=== PATIENT | female | born 1965 | race Caucasian/White ===

== ENCOUNTER 2020-08-03 06:37 | Day surgery (SDC) | payer OTHER ==
[2020-08-03] MEDS ORDERED: Sodium Chloride 0.9(Preservative Free) 10 ML IJ ONE (06:38)
[2020-08-03] MEDS ORDERED: Depo-Medrol 40 MG/ML IM ONE (06:38)
[2020-08-03] MEDS ORDERED: DIPRIVAN 200 MG/20 ML IV ONE (08:28)
--- NOTE | 2020-08-03 10:40 | XRAY ---
Indication: Right L3-L5 transforaminal GAIL. Intraoperative fluoroscopy provided for 44 seconds. 5 digital spot images submitted for interpretation demonstrates posterior needle tips projecting over the expected right L4 and L5 nerve roots. Small amount of contrast injected for needle tip placement. Correlate with intraoperative findings/report.
--- NOTE | 2020-08-03 11:00 | XRAY ---
44 seconds fluoroscopy time in surgery for right L3-L5 transforaminal GAIL.
[2020-08-03] MEDS ORDERED: Lactated Ringers 1,000 ML IV ONE (15:25)
== END 2020-08-03 08:55 | disposition home or self-care (01) ==
LOC: SDC-PAIN 06:37
PROVIDERS: ATTEND Psychiatry & Neurology Pain Medicine
DX: M47.816 Spondylosis without myelopathy or radiculopathy, lumbar region (principal); I10 Essential (primary) hypertension; I12.9 Hypertensive chronic kidney disease with stage 1 through stage 4 chronic kidney disease, or unspecified chronic kidney disease; E11.22 Type 2 diabetes mellitus with diabetic chronic kidney disease; N18.30 Chronic kidney disease, stage 3 unspecified; E06.3 Autoimmune thyroiditis; Z79.899 Other long term (current) drug therapy
CPT/HCPCS: 64483; 64484; 72100; 77003; 82947; J1030; J2704; Q9966

== ENCOUNTER 2020-09-21 07:29 | Day surgery (SDC) | payer OTHER ==
[2020-09-21] MEDS ORDERED: BUPIVACAINE 0.5% VIAL IJ ONE (07:30)
[2020-09-21] MEDS ORDERED: Depo-Medrol 40 MG/ML IM ONE (07:30)
[2020-09-21] MEDS ORDERED: DIPRIVAN 200 MG/20 ML IV ONE (09:12)
[2020-09-21] MEDS ORDERED: Lactated Ringers 1,000 ML IV ONE (11:30)
--- NOTE | 2020-09-21 11:51 | XRAY ---
Indication: Bilateral SI joint injection. Intraoperative fluoroscopy provided for 25 seconds. 4 digital spot image submitted for interpretation demonstrates posterior needle tip projecting over the inferior left and right SI joints. Correlate with intraoperative findings/report.
--- NOTE | 2020-09-21 12:03 | XRAY ---
25 seconds of fluoroscopy was used in surgery for a bilateral SI joint injection.
== END 2020-09-21 09:43 | disposition home or self-care (01) ==
LOC: SDC-PAIN 07:29
PROVIDERS: ATTEND Psychiatry & Neurology Pain Medicine
DX: M46.1 Sacroiliitis, not elsewhere classified (principal); E06.3 Autoimmune thyroiditis; E11.22 Type 2 diabetes mellitus with diabetic chronic kidney disease; I12.9 Hypertensive chronic kidney disease with stage 1 through stage 4 chronic kidney disease, or unspecified chronic kidney disease; N18.30 Chronic kidney disease, stage 3 unspecified; M41.9 Scoliosis, unspecified; Z79.899 Other long term (current) drug therapy
CPT/HCPCS: 27096; 72202; 77002; 82947; J1030; J2704; G0260

== ENCOUNTER 2022-03-30 14:24 | Observation (INO) | payer MEDICARE, OTHER ==
--- NOTE | 2022-03-30 15:14 | XRAY ---
Indication: Atrial fibrillation. Comparison: None Portable chest inflated and clear with incidental small right apical calcified granuloma. Heart not enlarged for AP portable technique. Bony thorax intact with mild osteopenia, degenerative changes, and dextroscoliosis. Impression: Nonacute chest with chronic features.
[2022-03-30 15:18] LABS: INR 1.02 (0.8-3.0); PROTIME 10.8 SECONDS (9.4-12.5); PTT 26.6 SECONDS (25.1-36.5)
[2022-03-30 15:21] LABS: Basophil (Absolute #) 0.03 x10^3/uL (0-0.4); Eosinophil % 0.9 % (0.00-5.0); Eosinophil (Absolute #) 0.05 x10^3/uL (0-0.5); Hematocrit 40.3 % (35-47); Hemoglobin 12.4 g/dL (12.0-16.0); Lymphocyte (Absolute #) 1.39 x10^3/uL (1.0-4.6); Lymphocytes % 26.3 % (24.0-44.0); Mean Corpuscular Hemoglobin 27.7 pg (26-32); Mean Corpuscular Hgb Concent. 30.8 g/dL (32-36); Mean Platelet Volume 10.8 fL (7.5-11.0); Monocytes % 5.7 % (0.0-12.0); Neutrophil % 66.3 % (36.0-66.0); Platelet Count 198 x10^3/uL (150-450); Red Blood Count 4.48 x10^6/uL (4.1-5.4); Red Cell Distribution Width 15.3 % (11.5-14.0); White Blood Count 5.3 x10^3/uL (4.0-10.5)
[2022-03-30] MEDS ORDERED: Lopressor 50 MG PO ONE (15:24)
[2022-03-30] MEDS ORDERED: Lopressor 50 MG ONE (15:26)
--- NOTE | 2022-03-30 15:30 | ERPHSYRPT ---
- History of Present Illness Source: patient Exam Limitations: no limitations Patient Subjective Stated Complaint: Pt states "My fitbit has been telling me I am in afib. It started the day before yesterday." Triage Nursing Assessment: PT presented alert and oriented X3, skin pwd. Pt ambulates with an upright steady gait, able to speak in clear full sentences pt in no apparent respiratory distress. Pt resting comfortably on the bed. Physician History: 56 yo wf w h/o DM/HTN presents w palpations x 2 days. Pt' s [employer] [facility] told her she was in Afib which was confirmed on monitor and EKG upon ER arrival. She has mild chest tightness wo dyspnea/diaphoresis/N/V. She has no h/o Afib and also denies CAD/[place]. Smoked 1.5 ppd until 4 yrs ago. Timing/Duration: other (2 days) Activities at Onset: rest Quality: tightness Location: substernal Chest Pain Radiation: no radiation Severity of Pain-Max: mild Severity of Pain-Current: mild Modifying Factors: Improves With: nothing Nitro Today/Relief: no nitro taken today Aspirin Treatment Today: no aspirin today Associated Symptoms: No nausea, No vomiting, No abdominal pain, No shortness of breath, No heartburn, No diaphoresis, No cough, No chills, No chest pain, No fever, No loss of appetite, No malaise, No rash, No syncope, No seizure, No weakness Prior Chest Pain/Cardiac Workup: no prior chest pain Allergies/Adverse Reactions: No Known Drug Allergies Allergy (Verified 03/30/22 14:39) Home Medications: Amlodipine Besylate 5 mg [Norvasc 5 mg] 5 mg PO DAILY 03/30/22 [History] Aspirin EC 325 mg [Ecotrin 325 MG] 325 mg PO DAILY 03/30/22 [History] Bumetanide 1 mg [Bumex 1 mg] 1 mg PO DAILY 03/30/22 [History] Cetirizine HCl [Allergy Relief] 10 mg PO DAILY 03/30/22 [History] Levothyroxine Sodium 150 mcg PO DAILY 03/30/22 [History] Losartan Potassium [Cozaar] 100 mg PO DAILY 03/30/22 [History] Metolazone 2.5 mg [Zaroxolyn 2.5 MG] 2.5 mg PO DAILY 03/30/22 [History] Montelukast Sodium [Singulair] 10 mg PO DAILY 03/30/22 [History] Phentermine HCl 30 mg PO DAILY 03/30/22 [History] Semaglutide [Ozempic] 0.5 mg IM WEEKLY 03/30/22 [History] Hx Tetanus, Diphtheria Vaccination/Date Given: No Hx Influenza Vaccination/Date Given: No Hx Pneumococcal Vaccination/Date Given: No Immunizations Up to Date: Yes Travel Risk - International Travel Have you traveled outside of the country in past 3 weeks: No - Coronavirus Screening Are you exhibiting any of the following symptoms?: No Close contact with a COVID-19 positive Pt in past 14-21 Days: No - Vaccine Status Have you recieved a Covid-19 vaccination: No - Review of Systems Constitutional: No Symptoms Eyes: No Symptoms Ears, Nose, & Throat: No Symptoms Respiratory: No Symptoms Cardiac: No Symptoms Abdominal/Gastrointestinal: No Symptoms Genitourinary Symptoms: No Symptoms Musculoskeletal: No Symptoms Skin: No Symptoms Neurological: No Symptoms Psychological: No Symptoms Endocrine: No Symptoms Hematologic/Lymphatic: No Symptoms Immunological/Allergic: No Symptoms - Past Medical History Pertinent Past Medical History: Yes Neurological History: No Pertinent History Cardiac History: Hypertension Endocrine Medical History: Hypothyroidism History: Renal Disease Other Medical History: guille - Past Surgical History Past Surgical History: Yes Other Surgical History: thyroidectomy. D & C - Social History Smoking Status: Former smoker Exposure to second hand smoke: Yes Drug Use: none Patient Lives Alone: Yes Significant Family History: no pertinent family hx - Nursing Vital Signs Nursing Vital Signs: Initial Vital Signs Temperature 97.3 F 03/30/22 14:33 Pulse Rate 131 H 03/30/22 14:33 Respiratory Rate 20 03/30/22 14:33 Blood Pressure 143/86 03/30/22 14:33 O2 Sat by Pulse Oximetry 94 L 03/30/22 14:33 Pain Scale Pain Intensity 0 Tachy/hypertensive - Physical Exam General Appearance: no apparent distress Eye Exam: PERRL/EOMI, eyes nml inspection Ears, Nose, Throat Exam: normal ENT inspection, TMs normal, pharynx normal, moist mucous membranes Neck Exam: normal inspection, non-tender, supple, full range of motion, No meningismus, No mass, No Brudzinski, No Kernig's, No carotid bruit Respiratory Exam: normal breath sounds, lungs clear, airway intact, No chest tenderness, No respiratory distress Cardiovascular Exam: capillary refill <2 sec, other (Ir-Ir wo murmur), No murmur Gastrointestinal/Abdomen Exam: soft, normal bowel sounds, No tenderness Back Exam: normal inspection, normal range of motion, No CVA tenderness, No vertebral tenderness Extremity Exam: normal inspection, normal range of motion, pelvis stable Neurologic Exam: alert, oriented x 3, cooperative, 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, normal mood/affect, sensation nml Skin Exam: normal color, warm, dry Lymphatic Exam: No adenopathy SpO2 Interpretation: normal SpO2: 94 O2 Delivery: Room Air - Course Nursing assessment & vital signs reviewed: Yes EKG Interpreted by Me: RATE (Afib/Rate 123/Prolonged QTc/Poor R wave progression/Flat T waves) - Radiology Exams Chest X-ray Interpretation: Discussed w/ radiologist (CXR neg per Rad) Ordered Tests: Active Orders 24 hr Category Date Time Status Bedrest with BRP/BSC ROUTINE Activity 03/30/22 16:23 Ordered Code Status Order ROUTINE Care 03/30/22 16:23 Ordered EKG-ER Only STAT Care 03/30/22 14:53 Active IV Care Q6H Care 03/30/22 16:23 Ordered Implement Chest Pain Pathway ROUTINE Care 03/30/22 16:[address] in Observation ROUTINE Care 03/30/22 16:23 Ordered Craig Hose, Apply ROUTINE Care 03/30/22 16:23 Ordered Vital Signs Q4H Care 03/30/22 16:23 Ordered Weight,Daily 0600 Care 03/30/22 16:23 Ordered Consistent Carbohydrate Diet 2000 Calorie Diet 03/31/22 Breakfast Ordered CHEST 1 VIEW (PORTABLE) Stat Exams 03/30/22 14:54 Completed CBC W DIFF Stat Lab 03/30/22 15:02 Completed CMP Stat Lab 03/30/22 15:02 Completed LIPID PROFILE AM.LAB Lab 03/31/22 04:00 Ordered PROTIME WITH INR Stat Lab 03/30/22 15:02 Completed PTT Stat Lab 03/30/22 15:02 Completed T4 (Thyroxine) Stat Lab 03/30/22 15:02 Completed TROPONIN Q4H Lab 03/30/22 15:02 Completed TROPONIN Q4H Lab 03/30/22 19:00 Ordered TROPONIN Q4H Lab 03/30/22 23:00 Ordered TSH, 3RD Generation Stat Lab 03/30/22 15:02 Completed EKG Q8HX2,QAMX3,PRN RT 03/30/22 16:23 Ordered Pulse Oximetry Q4H RT 03/30/22 16:23 Ordered Transfer Order Routine Transfer 03/30/22 Ordered Medication Summary Generic Name Dose Route Start Last Admin Trade Name Lewis PRN Reason Stop Dose Admin Acetaminophen 650 mg 03/30/22 16:23 Acetaminophen 325 Mg Tablet PO 04/29/22 16:22 Q4H PRN PRN PAIN AND/OR FEVER Al Hydrox/Mg Hydrox/Simethicone 30 ml 03/30/22 16:23 Mag Hydrox/Al Hydrox/Simeth 30 Ml Udcup PO 04/29/22 16:22 Q4H PRN PRN INDIGESTION Aspirin 325 mg 03/31/22 10:00 Aspirin 325 Mg Tablet.Ec PO 04/30/22 09:59 DAILY SRAVANI Insulin Human Lispro 0 unit 03/30/22 16:23 Insulin Lispro 1 Unit SQ 04/29/22 16:22 UD PRN HYPERGLYCEMIA Magnesium Hydroxide 30 - 60 ml 03/30/22 16:23 Magnesium Hydroxide 30 Ml Udcup PO 04/29/22 16:22 QDP PRN CONSTIPATION Metoprolol Tartrate 50 mg 03/30/22 22:00 Metoprolol Tartrate 25 Mg Tab PO 04/29/22 21:59 BID SRAVANI Ondansetron HCl 4 mg 03/30/22 16:23 Ondansetron Hcl 4 Mg/2 Ml Vial IV 04/29/22 16:22 Q4H PRN PRN NAUSEA/VOMITING Senna/Docusate Sodium 2 udtab 03/30/22 16:23 Senna/Docusate Sodium 1 Udtab Tablet PO 04/29/22 16:22 BID PRN PRN CONSTIPATION Discontinued Medications Generic Name Dose Route Start Last Admin Trade Name Lewis PRN Reason Stop Dose Admin Metoprolol Tartrate 50 mg 03/30/22 15:24 03/30/22 15:27 Metoprolol Tartrate 50 Mg Tablet PO 03/30/22 15:25 50 mg STAT ONE Administration Metoprolol Tartrate Confirm 03/30/22 15:26 Metoprolol Tartrate 50 Mg Tablet Administered 03/30/22 15:27 Dose 50 mg .ROUTE .K-MED ONE Lab/Rad Data: Laboratory Result Diagrams 03/30/22 15:02 03/30/22 15:02 Laboratory Results 03/30/22 03/30/22 03/30/22 Range/Units 15:02 15:02 15:02 WBC (4.0-10.5) x10^3/uL RBC (4.1-5.4) x10^6/uL Hgb (12.0-16.0) g/dL Hct (35-47) % MCV (78-100) fL MCH (26-32) pg MCHC (32-36) g/dL RDW (11.5-14.0) % Plt Count (150-450) x10^3/uL MPV (7.5-11.0) fL Gran % (36.0-66.0) % Immature Gran % (Auto) (0.00-0.4) % Nucleat RBC Rel Count (0.00-0.1) % Eos # (Auto) (0-0.5) x10^3/uL Immature Gran # (Auto) (0.00-0.03) x10^3u/L Absolute Lymphs (auto) (1.0-4.6) x10^3/uL Absolute Monos (auto) (0.0-1.3) x10^3/uL Absolute Nucleated RBC (0.00-0.01) x10^3u/L Lymphocytes % (24.0-44.0) % Monocytes % (0.0-12.0) % Eosinophils % (0.00-5.0) % Basophils % (0.0-0.4) % Absolute Granulocytes (1.4-6.9) x10^3/uL Basophils # (0-0.4) x10^3/uL PT 10.8 (9.4-12.5) SECONDS INR 1.02 (0.8-3.0) APTT 26.6 (25.1-36.5) SECONDS Sodium 140 (137-145) mmol/L Potassium 4.0 (3.5-5.1) mmol/L Chloride 106 (98-107) mmol/L Carbon Dioxide 27 (22-30) mmol/L Anion Gap 12.1 (5-15) MEQ/L BUN 18 H (7-17) mg/dL Creatinine 0.96 (0.52-1.04) mg/dL Estimated GFR > 60.0 ML/MIN Glucose 96 (74-106) mg/dL Calcium 9.5 (8.4-10.2) mg/dL Total Bilirubin 0.50 (0.2-1.3) mg/dL AST 26 (14-36) U/L ALT 26 (0-35) U/L Alkaline Phosphatase 102 (38-126) U/L Troponin I < 0.012 (0.000-0.034) ng/mL Serum Total Protein 7.8 (6.3-8.2) g/dL Albumin 4.4 (3.5-5.0) g/dL Thyroxine (T4) 11.8 H (5.53-10.96) ug/dL TSH 3rd Generation < 0.015 L (0.47-4.68) mIU/L 03/30/22 Range/Units 15:02 WBC 5.3 (4.0-10.5) x10^3/uL RBC 4.48 (4.1-5.4) x10^6/uL Hgb 12.4 (12.0-16.0) g/dL Hct 40.3 (35-47) % MCV 90.0 (78-100) fL MCH 27.7 (26-32) pg MCHC 30.8 L (32-36) g/dL RDW 15.3 H (11.5-14.0) % Plt Count 198 (150-450) x10^3/uL MPV 10.8 (7.5-11.0) fL Gran % 66.3 H (36.0-66.0) % Immature Gran % (Auto) 0.2 (0.00-0.4) % Nucleat RBC Rel Count 0.0 (0.00-0.1) % Eos # (Auto) 0.05 (0-0.5) x10^3/uL Immature Gran # (Auto) 0.01 (0.00-0.03) x10^3u/L Absolute Lymphs (auto) 1.39 (1.0-4.6) x10^3/uL Absolute Monos (auto) 0.30 (0.0-1.3) x10^3/uL Absolute Nucleated RBC 0.00 (0.00-0.01) x10^3u/L Lymphocytes % 26.3 (24.0-44.0) % Monocytes % 5.7 (0.0-12.0) % Eosinophils % 0.9 (0.00-5.0) % Basophils % 0.6 (0.0-0.4) % Absolute Granulocytes 3.50 (1.4-6.9) x10^3/uL Basophils # 0.03 (0-0.4) x10^3/uL PT (9.4-12.5) SECONDS INR (0.8-3.0) APTT (25.1-36.5) SECONDS Sodium (137-145) mmol/L Potassium (3.5-5.1) mmol/L Chloride (98-107) mmol/L Carbon Dioxide (22-30) mmol/L Anion Gap (5-15) MEQ/L BUN (7-17) mg/dL Creatinine (0.52-1.04) mg/dL Estimated GFR ML/MIN Glucose (74-106) mg/dL Calcium (8.4-10.2) mg/dL Total Bilirubin (0.2-1.3) mg/dL AST (14-36) U/L ALT (0-35) U/L Alkaline Phosphatase (38-126) U/L Troponin I (0.000-0.034) ng/mL Serum Total Protein (6.3-8.2) g/dL Albumin (3.5-5.0) g/dL Thyroxine (T4) (5.53-10.96) ug/dL TSH 3rd Generation (0.47-4.68) mIU/L - Progress Progress: improved Progress Note: 03/30/22 16:32 Pt obs admit per Dr. Patel due to new onset of Afib wRVR and for anticoag ulation RVR decreased w 50mg po Lopressor CXR/Labs reviewed and shared w pt No housing or food insecurities noted Pt ok w plan for obs admit Discussed with : Parth Counseled pt/family regarding: lab results, diagnosis, rad results - Departure Departure Disposition: Observation Clinical Impression: Atrial fibrillation Condition: Stable Critical Care Time: No Referrals: TRAN PAIGE [Primary Care Provider] - Follow up/PCP as directed
[2022-03-30 15:47] LABS: ALBUMIN 4.4 g/dL (3.5-5.0); ALKALINE PHOSPHATASE 102 U/L (38-126); ANION GAP 12.1 MEQ/L (5-15); BLOOD UREA NITROGEN 18 mg/dL (7-17); CHLORIDE 106 mmol/L (98-107); Calcium 9.5 mg/dL (8.4-10.2); Carbon Dioxide 27 mmol/L (22-30); Creatinine 1 0.96 mg/dL (0.52-1.04); EST GLOMERULAR FILTRATION RATE > 60.0 ML/MIN; Glucose 96 mg/dL (74-106); SGOT/AST 26 U/L (14-36); SGPT/ALT 26 U/L (0-35); SODIUM 140 mmol/L (137-145); T4 (Thyroxine) 11.8 ug/dL (5.53-10.96); TSH, 3RD Generation < 0.015 mIU/L (0.47-4.68); Total Protein 7.8 g/dL (6.3-8.2)
[2022-03-30] MEDS ORDERED: MAALOX ES 30 ML UNIT DOSE PO PRN (16:23)
[2022-03-30] MEDS ORDERED: MILK OF MAGNESIA 30 ML PO PRN (16:23)
[2022-03-30] MEDS ORDERED: HUMALOG SQ PRN (16:23)
[2022-03-30] MEDS ORDERED: TYLENOL 325 MG PO PRN (16:23)
[2022-03-30] MEDS ORDERED: Senokot-S Tablet PO PRN (16:23)
[2022-03-30] MEDS ORDERED: Zofran 4 MG/2 ML VIAL IV PRN (16:23)
[2022-03-30] MEDS ORDERED: ENOXAPARIN SODIUM SQ ONE (16:31)
[2022-03-30] MEDS: ENOXAPARIN SODIUM SQ SCH (16:33)
[2022-03-30 18:01] LABS: INFLUENZA A NEGATIVE (NEGATIVE); INFLUENZA B NEGATIVE (NEGATIVE); RESPIRATORY SYNCTIAL VIRUS NEGATIVE (Negative); SARS-CoV-2 Xpert Express NEGATIVE (NEGATIVE)
[2022-03-30] MEDS: Lopressor 25MG Tab PO SCH (21:43)
[2022-03-31] MEDS ORDERED: ENOXAPARIN SODIUM SQ ONE (04:02)
[2022-03-31] MEDS: ENOXAPARIN SODIUM SQ SCH (04:05)
[2022-03-31 06:52] LABS: Risk Ratio 4.7
[2022-03-31] MEDS: Lopressor 25MG Tab PO SCH ×2 (11:11→21:00)
[2022-03-31] MEDS: Ecotrin 325 MG PO SCH (11:11)
--- NOTE | 2022-03-31 14:31 | PCM.HP ---
History of Present Illness - Chief Complaint Chief Complaint: AFIB History of Present Illness: is a 56 year old female patient of Dr Sri Dia w h/o DM/HTN/Hypothyroid presents w palpations x 2 days. Patient states her Fitbit told her she was in Afib which was confirmed on monitor and EKG upon ER arrival. She has mild chest tightness wo dyspnea/diaphoresis/N/V. She has no h/o Afib and also denies CAD/[place]. Smoked 1.5 ppd until 4 yrs ago. Note ER labs showed TSH was low and T4 was elevated-patient taking Levothyroxine 150mcg daily which will be held and lower dose started after holding one dose. Medications & Allergies Home Medications: Home Medication List Bumetanide 1 mg [Bumex 1 mg] 1 mg PO DAILY 03/30/22 [History Confirmed 03/30/22] Cetirizine HCl [Allergy Relief] 10 mg PO DAILY 03/30/22 [History Confirmed 03/18 06/07] Metolazone 2.5 mg [Zaroxolyn 2.5 MG] 2.5 mg PO UD PRN 03/30/22 [History Confirmed 03/30/22] Montelukast Sodium [Singulair] 10 mg PO DAILY 03/30/22 [History Confirmed 03/30/22] Omeprazole 40 mg PO DAILY 03/30/22 [History Confirmed 03/30/22] Semaglutide [Ozempic] 0.5 mg IM WEEKLY 03/30/22 [History Confirmed 03/30/22] Apixaban [Eliquis 5 mg Tablet] 5 mg PO BID #60 tablet 04/01/22 [Rx] Levothyroxine Sodium [Levothyroxine] 125 mcg PO DAILY #30 cap 04/01/22 [Rx] Losartan Potassium 50 mg [Cozaar 50 MG] 50 mg PO DAILY #30 tablet 04/01/22 [Rx] Metoprolol Tartrate 50 mg [Lopressor 50 MG] 50 mg PO BID #60 tablet 04/01/22 [Rx] Allergies/Adverse Reactions: Allergies Allergy/AdvReac Type Severity Reaction Status Date / Time No Known Drug Allergies Allergy Verified 03/30/22 14:39 - Past Medical History Past Medical History: Yes Neurological History: No Pertinent History Cardiac History: Hypertension Endocrine Medical History: Hypothyroidism, Other (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 D & C - Social History Smoking Status: Former smoker Exposure to second hand smoke: Yes Alcohol: None Drug Use: none Significant Family History: no pertinent family hx - Physical Exam Vital Signs: Vital Signs - 24 hr Temp Pulse Pulse Resp BP Pulse Ox 03/31/22 11:33 97.1 F 98 H 17 148/58 94 L 03/31/22 08:00 97.9 F 72 18 106/63 92 L 03/31/22 04:00 96.8 F 79 20 107/67 91 L 03/30/22 23:43 97.8 F 95 H 18 121/87 95 03/30/22 18:32 97.8 F 96 H 20 122/70 93 L 03/30/22 16:54 98.2 F 89 20 125/91 98 03/30/22 16:36 94 L 03/30/22 16:02 92 H 20 129/87 03/30/22 15:31 97.2 F 110 H 20 125/86 93 L 03/30/22 14:33 97.3 F 131 H 118 H 20 143/86 94 L Results - Labs Lab/Micro Results: Lab Results-Last 24 Hours 03/30/22 03/30/22 03/30/22 Range/Units 15:02 15:02 15:02 WBC 5.3 (4.0-10.5) x10^3/uL RBC 4.48 (4.1-5.4) x10^6/uL Hgb 12.4 (12.0-16.0) g/dL Hct 40.3 (35-47) % MCV 90.0 (78-100) fL MCH 27.7 (26-32) pg MCHC 30.8 L (32-36) g/dL RDW 15.3 H (11.5-14.0) % Plt Count 198 (150-450) x10^3/uL MPV 10.8 (7.5-11.0) fL Gran % 66.3 H (36.0-66.0) % Immature Gran % (Auto) 0.2 (0.00-0.4) % Nucleat RBC Rel Count 0.0 (0.00-0.1) % Eos # (Auto) 0.05 (0-0.5) x10^3/uL Immature Gran # (Auto) 0.01 (0.00-0.03) x10^3u/L Absolute Lymphs (auto) 1.39 (1.0-4.6) x10^3/uL Absolute Monos (auto) 0.30 (0.0-1.3) x10^3/uL Absolute Nucleated RBC 0.00 (0.00-0.01) x10^3u/L Lymphocytes % 26.3 (24.0-44.0) % Monocytes % 5.7 (0.0-12.0) % Eosinophils % 0.9 (0.00-5.0) % Basophils % 0.6 (0.0-0.4) % Absolute Granulocytes 3.50 (1.4-6.9) x10^3/uL Basophils # 0.03 (0-0.4) x10^3/uL PT 10.8 (9.4-12.5) SECONDS INR 1.02 (0.8-3.0) APTT 26.6 (25.1-36.5) SECONDS Sodium 140 (137-145) mmol/L Potassium 4.0 (3.5-5.1) mmol/L Chloride 106 (98-107) mmol/L Carbon Dioxide 27 (22-30) mmol/L Anion Gap 12.1 (5-15) MEQ/L BUN 18 H (7-17) mg/dL Creatinine 0.96 (0.52-1.04) mg/dL Estimated GFR > 60.0 ML/MIN Glucose 96 (74-106) mg/dL POC Glucometer (74 to 106) mg/dL Calcium 9.5 (8.4-10.2) mg/dL Magnesium (1.6-2.3) mg/dL Total Bilirubin 0.50 (0.2-1.3) mg/dL AST 26 (14-36) U/L ALT 26 (0-35) U/L Alkaline Phosphatase 102 (38-126) U/L Troponin I (0.000-0.034) ng/mL Serum Total Protein 7.8 (6.3-8.2) g/dL Albumin 4.4 (3.5-5.0) g/dL Triglycerides (30-150) mg/dL Cholesterol (50-200) mg/dL LDL Cholesterol (30-100) mg/dL HDL Cholesterol (40-60) mg/dL Heart Disease Risk Ratio Thyroxine (T4) 11.8 H (5.53-10.96) ug/dL TSH 3rd Generation < 0.015 L (0.47-4.68) mIU/L Influenza Type A Ag (NEGATIVE) Influenza Type B Ag (NEGATIVE) RSV (PCR) (Negative) SARS-CoV-2 (PCR) (NEGATIVE) 03/30/22 03/30/22 03/30/22 Range/Units 15:02 19:45 21:14 WBC (4.0-10.5) x10^3/uL RBC (4.1-5.4) x10^6/uL Hgb (12.0-16.0) g/dL Hct (35-47) % MCV (78-100) fL MCH (26-32) pg MCHC (32-36) g/dL RDW (11.5-14.0) % Plt Count (150-450) x10^3/uL MPV (7.5-11.0) fL Gran % (36.0-66.0) % Immature Gran % (Auto) (0.00-0.4) % Nucleat RBC Rel Count (0.00-0.1) % Eos # (Auto) (0-0.5) x10^3/uL Immature Gran # (Auto) (0.00-0.03) x10^3u/L Absolute Lymphs (auto) (1.0-4.6) x10^3/uL Absolute Monos (auto) (0.0-1.3) x10^3/uL Absolute Nucleated RBC (0.00-0.01) x10^3u/L Lymphocytes % (24.0-44.0) % Monocytes % (0.0-12.0) % Eosinophils % (0.00-5.0) % Basophils % (0.0-0.4) % Absolute Granulocytes (1.4-6.9) x10^3/uL Basophils # (0-0.4) x10^3/uL PT (9.4-12.5) SECONDS INR (0.8-3.0) APTT (25.1-36.5) SECONDS Sodium (137-145) mmol/L Potassium (3.5-5.1) mmol/L Chloride (98-107) mmol/L Carbon Dioxide (22-30) mmol/L Anion Gap (5-15) MEQ/L BUN (7-17) mg/dL Creatinine (0.52-1.04) mg/dL Estimated GFR ML/MIN Glucose (74-106) mg/dL POC Glucometer 104 (74 to 106) mg/dL Calcium (8.4-10.2) mg/dL Magnesium (1.6-2.3) mg/dL Total Bilirubin (0.2-1.3) mg/dL AST (14-36) U/L ALT (0-35) U/L Alkaline Phosphatase (38-126) U/L Troponin I < 0.012 < 0.012 (0.000-0.034) ng/mL Serum Total Protein (6.3-8.2) g/dL Albumin (3.5-5.0) g/dL Triglycerides (30-150) mg/dL Cholesterol (50-200) mg/dL LDL Cholesterol (30-100) mg/dL HDL Cholesterol (40-60) mg/dL Heart Disease Risk Ratio Thyroxine (T4) (5.53-10.96) ug/dL TSH 3rd Generation (0.47-4.68) mIU/L Influenza Type A Ag (NEGATIVE) Influenza Type B Ag (NEGATIVE) RSV (PCR) (Negative) SARS-CoV-2 (PCR) (NEGATIVE) 03/30/22 03/30/22 03/31/22 Range/Units 23:00 Unknown 05:00 WBC (4.0-10.5) x10^3/uL RBC (4.1-5.4) x10^6/uL Hgb (12.0-16.0) g/dL Hct (35-47) % MCV (78-100) fL MCH (26-32) pg MCHC (32-36) g/dL RDW (11.5-14.0) % Plt Count (150-450) x10^3/uL MPV (7.5-11.0) fL Gran % (36.0-66.0) % Immature Gran % (Auto) (0.00-0.4) % Nucleat RBC Rel Count (0.00-0.1) % Eos # (Auto) (0-0.5) x10^3/uL Immature Gran # (Auto) (0.00-0.03) x10^3u/L Absolute Lymphs (auto) (1.0-4.6) x10^3/uL Absolute Monos (auto) (0.0-1.3) x10^3/uL Absolute Nucleated RBC (0.00-0.01) x10^3u/L Lymphocytes % (24.0-44.0) % Monocytes % (0.0-12.0) % Eosinophils % (0.00-5.0) % Basophils % (0.0-0.4) % Absolute Granulocytes (1.4-6.9) x10^3/uL Basophils # (0-0.4) x10^3/uL PT (9.4-12.5) SECONDS INR (0.8-3.0) APTT (25.1-36.5) SECONDS Sodium (137-145) mmol/L Potassium (3.5-5.1) mmol/L Chloride (98-107) mmol/L Carbon Dioxide (22-30) mmol/L Anion Gap (5-15) MEQ/L BUN (7-17) mg/dL Creatinine (0.52-1.04) mg/dL Estimated GFR ML/MIN Glucose (74-106) mg/dL POC Glucometer (74 to 106) mg/dL Calcium (8.4-10.2) mg/dL Magnesium 2.0 (1.6-2.3) mg/dL Total Bilirubin (0.2-1.3) mg/dL AST (14-36) U/L ALT (0-35) U/L Alkaline Phosphatase (38-126) U/L Troponin I < 0.012 (0.000-0.034) ng/mL Serum Total Protein (6.3-8.2) g/dL Albumin (3.5-5.0) g/dL Triglycerides (30-150) mg/dL Cholesterol (50-200) mg/dL LDL Cholesterol (30-100) mg/dL HDL Cholesterol (40-60) mg/dL Heart Disease Risk Ratio Thyroxine (T4) (5.53-10.96) ug/dL TSH 3rd Generation (0.47-4.68) mIU/L Influenza Type A Ag NEGATIVE (NEGATIVE) Influenza Type B Ag NEGATIVE (NEGATIVE) RSV (PCR) NEGATIVE (Negative) SARS-CoV-2 (PCR) NEGATIVE (NEGATIVE) 03/31/22 03/31/22 Range/Units 05:54 07:19 WBC (4.0-10.5) x10^3/uL RBC (4.1-5.4) x10^6/uL Hgb (12.0-16.0) g/dL Hct (35-47) % MCV (78-100) fL MCH (26-32) pg MCHC (32-36) g/dL RDW (11.5-14.0) % Plt Count (150-450) x10^3/uL MPV (7.5-11.0) fL Gran % (36.0-66.0) % Immature Gran % (Auto) (0.00-0.4) % Nucleat RBC Rel Count (0.00-0.1) % Eos # (Auto) (0-0.5) x10^3/uL Immature Gran # (Auto) (0.00-0.03) x10^3u/L Absolute Lymphs (auto) (1.0-4.6) x10^3/uL Absolute Monos (auto) (0.0-1.3) x10^3/uL Absolute Nucleated RBC (0.00-0.01) x10^3u/L Lymphocytes % (24.0-44.0) % Monocytes % (0.0-12.0) % Eosinophils % (0.00-5.0) % Basophils % (0.0-0.4) % Absolute Granulocytes (1.4-6.9) x10^3/uL Basophils # (0-0.4) x10^3/uL PT (9.4-12.5) SECONDS INR (0.8-3.0) APTT (25.1-36.5) SECONDS Sodium (137-145) mmol/L Potassium (3.5-5.1) mmol/L Chloride (98-107) mmol/L Carbon Dioxide (22-30) mmol/L Anion Gap (5-15) MEQ/L BUN (7-17) mg/dL Creatinine (0.52-1.04) mg/dL Estimated GFR ML/MIN Glucose (74-106) mg/dL POC Glucometer 82 (74 to 106) mg/dL Calcium (8.4-10.2) mg/dL Magnesium (1.6-2.3) mg/dL Total Bilirubin (0.2-1.3) mg/dL AST (14-36) U/L ALT (0-35) U/L Alkaline Phosphatase (38-126) U/L Troponin I (0.000-0.034) ng/mL Serum Total Protein (6.3-8.2) g/dL Albumin (3.5-5.0) g/dL Triglycerides 199 H (30-150) mg/dL Cholesterol 208 H (50-200) mg/dL LDL Cholesterol 103 H (30-100) mg/dL HDL Cholesterol 44 (40-60) mg/dL Heart Disease Risk Ratio 4.7 Thyroxine (T4) (5.53-10.96) ug/dL TSH 3rd Generation (0.47-4.68) mIU/L Influenza Type A Ag (NEGATIVE) Influenza Type B Ag (NEGATIVE) RSV (PCR) (Negative) SARS-CoV-2 (PCR) (NEGATIVE) Accuchecks Date 03/31/22 Time 07:58 - Radiology Impressions Radiology Exams & Impressions: Radiology Procedures Category Date Time Status CHEST 1 VIEW (PORTABLE) Stat Exams 03/30/22 14:54 Completed - Other Procedures and Tests Respiratory Therapy 04/01/22 05:00 EKG ONCE 04/02/22 05:00 EKG ONCE Assessment/Plan (1) Atrial fibrillation Current Visit: Yes Status: Acute Qualifiers: Atrial fibrillation type: persistent (not longstanding) Qualified Code(s): I48.19 - Other persistent atrial fibrillation; I48.1 - Persistent atrial fibrillation Assessment & Plan: Started Metoprolol and Eliquis.Dr Poon [employer]visor [employer] to follow outpatient Code(s): I48.91 - UNSPECIFIED ATRIAL FIBRILLATION (2) Hypothyroidism (acquired) Current Visit: Yes Status: Acute Assessment & Plan: S/P Thyroidectomy (03/21) gland remains treatment for Goiter Code(s): E03.9 - HYPOTHYROIDISM, UNSPECIFIED (3) Guille's thyroiditis Current Visit: Yes Status: Acute Code(s): E06.3 - AUTOIMMUNE THYROIDITIS (4) Elevated serum free T4 level Current Visit: Yes Status: Acute Assessment & Plan: dose Levothyroxine held then adjusted down Code(s): R79.89 - OTHER SPECIFIED ABNORMAL FINDINGS OF BLOOD CHEMISTRY (5) HTN (hypertension) Current Visit: Yes Status: Acute Code(s): I10 - ESSENTIAL (PRIMARY) HYPERTENSION
[2022-03-31] MEDS ORDERED: NON-FORMULARY ITEM (Semaglutide [Ozempic] 0.25 MG/0.2 ML Pen.Injctr) IM SCH (16:00)
[2022-03-31] MEDS ORDERED: MEDICATION INTERVENTION MC SCH (16:00)
[2022-03-31] MEDS ORDERED: SYNTHROID 150 MCG PO SCH (17:00)
[2022-03-31] MEDS: BUMEX 1 MG PO SCH (18:30)
[2022-03-31] MEDS: CLARITIN 10 MG PO SCH (19:08)
[2022-03-31] MEDS: NORVASC 5 MG PO SCH (19:08)
[2022-03-31] MEDS: Protonix 40MG Tablet PO SCH (19:08)
[2022-03-31] MEDS: Cozaar 50 MG PO SCH (19:08)
[2022-03-31] MEDS: Singulair 10 MG PO SCH (19:09)
[2022-03-31] MEDS: ELIQUIS 2.5 MG TABLET PO SCH (21:00)
[2022-03-31] MEDS ORDERED: ENOXAPARIN SODIUM SQ SCH (22:00)
[2022-04-01 05:41] LABS: Basophil (Absolute #) 0.03 x10^3/uL (0-0.4); Eosinophil % 1.4 % (0.00-5.0); Eosinophil (Absolute #) 0.06 x10^3/uL (0-0.5); Hematocrit 36.1 % (35-47); Hemoglobin 11.4 g/dL (12.0-16.0); Lymphocyte (Absolute #) 1.54 x10^3/uL (1.0-4.6); Lymphocytes % 36.4 % (24.0-44.0); Mean Cell Volume 89.1 fL (78-100); Mean Corpuscular Hemoglobin 28.1 pg (26-32); Mean Corpuscular Hgb Concent. 31.6 g/dL (32-36); Mean Platelet Volume 10.6 fL (7.5-11.0); Monocyte (Absolute #) 0.29 x10^3/uL (0.0-1.3); Monocytes % 6.9 % (0.0-12.0); Neutrophil % 54.4 % (36.0-66.0); Platelet Count 161 x10^3/uL (150-450); Red Blood Count 4.05 x10^6/uL (4.1-5.4); Red Cell Distribution Width 15.4 % (11.5-14.0); White Blood Count 4.2 x10^3/uL (4.0-10.5)
[2022-04-01 06:19] LABS: Appearance Clear (Clear); Bacteria None Seen /HPF (None Seen); Bilirubin Negative (Negative); Blood Negative (Negative); Glucose, Urine Negative (Negative); Hyaline Casts NONE SEEN /LPF (0-2); Ketones Negative (Negative); Leukocyte Esterase Negative (Negative); Nitrite Negative (Negative); Ph 6.5 (4.6-8.0); Protein,Urine Dip 30 (Negative); Urobilinogen 0.2 mg/dL (0.2)
[2022-04-01 06:31] LABS: ADD URINE CULTURE? NO (NO); Epithelial Cells Few /HPF (None Seen)
[2022-04-01 06:36] LABS: ALBUMIN 3.5 g/dL (3.5-5.0); ALKALINE PHOSPHATASE 83 U/L (38-126); ANION GAP 5.8 MEQ/L (5-15); BLOOD UREA NITROGEN 17 mg/dL (7-17); CHLORIDE 110 mmol/L (98-107); Calcium 8.9 mg/dL (8.4-10.2); Carbon Dioxide 27 mmol/L (22-30); Creatinine 1 0.86 mg/dL (0.52-1.04); EST GLOMERULAR FILTRATION RATE > 60.0 ML/MIN; Glucose 94 mg/dL (74-106); Potassium 3.8 mmol/L (3.5-5.1); SGOT/AST 20 U/L (14-36); SGPT/ALT 21 U/L (0-35); SODIUM 139 mmol/L (137-145); TSH, 3RD Generation < 0.015 mIU/L (0.47-4.68); Total Protein 6.4 g/dL (6.3-8.2)
[2022-04-01] MEDS: Singulair 10 MG PO SCH (08:16)
[2022-04-01] MEDS: Lopressor 25MG Tab PO SCH (08:16)
[2022-04-01] MEDS: Protonix 40MG Tablet PO SCH (08:16)
[2022-04-01] MEDS: ELIQUIS 2.5 MG TABLET PO SCH (08:16)
[2022-04-01] MEDS: Ecotrin 325 MG PO SCH (08:18)
[2022-04-01] MEDS: CLARITIN 10 MG PO SCH (08:18)
[2022-04-01 08:48] VITALS: O2SAT 95
[2022-04-01] MEDS ORDERED: NON-FORMULARY ITEM (Cetirizine Hcl [Allergy Relief] 10 MG Capsule) PO SCH (10:00)
[2022-04-01] MEDS ORDERED: NON-FORMULARY ITEM (Losartan Potassium [Cozaar] 100 MG Tablet) PO SCH (10:00)
[2022-04-01] MEDS ORDERED: NON-FORMULARY ITEM (Omeprazole [Omeprazole] 40 MG Capsule.Dr) PO SCH (10:00)
[2022-04-01] MEDS ORDERED: Ecotrin 325 MG PO SCH (10:00)
[2022-04-01 12:38] VITALS: BP 130/88; PULSE 93
[2022-04-01] MEDS: Cozaar 50 MG PO SCH (12:50)
[2022-04-01] MEDS: BUMEX 1 MG PO SCH (12:50)
[2022-04-01] MEDS: NORVASC 5 MG PO SCH (12:50)
[2022-04-01 13:57] LABS: RH TYPING POSITIVE
--- NOTE | 2022-04-01 15:48 | PCM.DCORD ---
- Discharge Disposition: Home, Self-Care Condition: Stable Prescriptions: New Losartan Potassium 50 mg [Cozaar 50 MG] 50 mg PO DAILY #30 tablet Apixaban [Eliquis 5 mg Tablet] 5 mg PO BID #60 tablet Metoprolol Tartrate 50 mg [Lopressor 50 MG] 50 mg PO BID #60 tablet Levothyroxine Sodium [Levothyroxine] 125 mcg PO DAILY #30 cap Continue Cetirizine HCl [Allergy Relief] 10 mg PO DAILY Discontinued Levothyroxine Sodium 150 mcg PO DAILY Aspirin EC 325 mg [Ecotrin 325 MG] 325 mg PO DAILY Losartan Potassium [Cozaar] 100 mg PO DAILY Amlodipine Besylate 5 mg [Norvasc 5 mg] 5 mg PO DAILY No Action Bumetanide 1 mg [Bumex 1 mg] 1 mg PO DAILY Semaglutide [Ozempic] 0.5 mg IM WEEKLY Montelukast Sodium [Singulair] 10 mg PO DAILY Metolazone 2.5 mg [Zaroxolyn 2.5 MG] 2.5 mg PO UD PRN PRN Reason: diuretic Omeprazole 40 mg PO DAILY Instructions: Atrial Fibrillation (DC) Additional Instructions: CORONARY CALCIUM SCORE SCHEDULED FOR SATURDAY AT 3:00PM MUST BE NPO 4HR PRIOR. NO CAFFEINE OR NICOTINE 4 HR PRIOR. WEAR LOOSE FITTING CLOTHING Follow up with: BRIAN PIERCE [CONSULTING PHYSICIAN] - (OUR DEPT WILL CALL YOU TOMORROW WITH APPT) TRAN PAIGE [Primary Care Provider] -
[2022-04-01 18:29] LABS: ABO TYPING A
== END 2022-04-01 17:00 | disposition home or self-care (01) ==
LOC: ED 14:24 → MED SURG 18:09
PROVIDERS: ADMIT Family Medicine; ATTEND Family Medicine
DX: I48.91 Unspecified atrial fibrillation (principal); E11.9 Type 2 diabetes mellitus without complications; E06.3 Autoimmune thyroiditis; I10 Essential (primary) hypertension; E03.9 Hypothyroidism, unspecified; R79.89 Other specified abnormal findings of blood chemistry; Z79.899 Other long term (current) drug therapy; Z20.828 Contact with and (suspected) exposure to other viral communicable diseases
CPT/HCPCS: 0241U; 36415; 71045; 80053; 80061; 81001; 82947; 83721; 83735; 84436; 84443; 84484; 85025; 85610; 85730; 86900; 86901; 93005; 93268; 94762; 96372; 99285; J1650; A9270-GY; G0378

== ENCOUNTER 2023-04-10 07:21 | Day surgery (SDC) | payer MEDICARE ==
[2023-04-10] MEDS ORDERED: Depo-Medrol 40 MG/ML IM ONE (07:22)
[2023-04-10] MEDS ORDERED: BUPIVACAINE 0.5% VIAL IJ ONE (07:22)
[2023-04-10] MEDS ORDERED: DIPRIVAN 200 MG/20 ML IV ONE (09:12)
--- NOTE | 2023-04-10 12:06 | XRAY ---
Indication: Bilateral hip and greater trochanter bursa injection. Intraoperative fluoroscopy provided for 49 seconds. 4 digital spot image submitted for interpretation demonstrates needle tips projecting lateral to the left/right femur necks and lateral to left/right greater trochanters. Small amount of contrast injected for all needle tip placement. Correlate with intraoperative findings/report.
--- NOTE | 2023-04-10 12:08 | XRAY ---
49 seconds of fluoroscopy was used in surgery for a bilateral intra-articular hip and greater trochanteric bursa injection.
[2023-04-10] MEDS ORDERED: Lactated Ringers 1,000 ML IV ONE (14:19)
== END 2023-04-10 09:40 | disposition home or self-care (01) ==
LOC: SDC-PAIN 07:21
PROVIDERS: ATTEND Psychiatry & Neurology Pain Medicine
DX: M16.0 Bilateral primary osteoarthritis of hip (principal); M70.62 Trochanteric bursitis, left hip; M70.61 Trochanteric bursitis, right hip; E11.9 Type 2 diabetes mellitus without complications
CPT/HCPCS: 20610; 73522; 77002; 82947; J1030; J2704; Q9966